=== PATIENT | male | born 1995 | race Caucasian/White ===

== ENCOUNTER 2019-03-20 18:56 | Emergency (ER) | payer BC, OTHER ==
[2019-03-20 19:02] VITALS: BP 134/74; PULSE 108; RESP 16; TEMP 98.7
--- NOTE | 2019-03-20 19:38 | ED ---
General Adult HPI - General Source: patient, RN notes reviewed Mode of arrival: ambulatory Limitations: no limitations <Alexi Delgado - Last Filed: 03/20/19 19:49> <Jacqueline Harris - Last Filed: 03/22/19 22:24> - General Chief complaint: Fever Stated complaint: positive flu test Time Seen by Provider: 03/20/19 19:06 - History of Present Illness Initial comments: 23-year-old male without any significant past medical history presents to the emergency department for fever. Patient has had a fever since yesterday. States that today his fever was 100. He went to urgent care and his anus with influenza B. Patient did have a positive influenza B test. He was started on Tylenol and Tamiflu. Apparently urgent care told him to come to the emergency department if he continued to have fevers. Patient states that he had a temperature of 100.0 earlier today. Patient has not taken any Motrin. Patient has symptoms of congestion and runny nose. No significant cough. Patient does not have any immunosuppressive features.Patient has no other complaints at this time including shortness of breath, chest pain, abdominal pain, nausea or vomiting, headache, or visual changes. (Alexi Delgado) - Related Data Previous Rx's Medication Instructions Recorded Ibuprofen [Motrin] 600 mg PO Q6HR PRN #20 tab 03/20/19 Allergies Allergy/AdvReac Type Severity Reaction Status Date / Time amoxicillin [From Augmentin] Allergy Rash/Hives Verified 03/20/19 19:01 clavulanic acid Allergy Rash/Hives Verified 03/20/19 19:01 [From Augmentin] shellfish derived [Shellfish] Allergy Swelling Verified 03/20/19 19:01 Review of Systems ROS Other: All systems not noted in ROS Statement are negative. <Alexi Delgado - Last Filed: 03/20/19 19:49> ROS Other: All systems not noted in ROS Statement are negative. <Jacqueline Harris - Last Filed: 03/22/19 22:24> ROS Statement: Those systems with pertinent positive or pertinent negative responses have been documented in the HPI. Past Medical History Past Medical History: Hypertension History of Any Multi-Drug Resistant Organisms: None Reported Past Surgical History: No Surgical Hx Reported Past Psychological History: Bipolar Smoking Status: Current every day smoker Past Alcohol Use History: Rare Past Drug Use History: None Reported <Alexi Delgado - Last Filed: 03/20/19 19:49> General Exam Limitations: no limitations General appearance: alert, in no apparent distress Head exam: Present: atraumatic, normocephalic, normal inspection Eye exam: Present: normal appearance, PERRL, EOMI. Absent: scleral icterus, conjunctival injection, periorbital swelling ENT exam: Present: normal exam, normal oropharynx, mucous membranes moist, TM's normal bilaterally, normal external ear exam Neck exam: Present: normal inspection, full ROM. Absent: tenderness, meningismus, lymphadenopathy Respiratory exam: Present: normal lung sounds bilaterally. Absent: respiratory distress, wheezes, rales, rhonchi, stridor Cardiovascular Exam: Present: regular rate, normal rhythm, normal heart sounds. Absent: systolic murmur, diastolic murmur, rubs, gallop, clicks GI/Abdominal exam: Present: soft, normal bowel sounds. Absent: distended, tenderness, guarding, rebound, rigid <Alexi Delgado - Last Filed: 03/20/19 19:49> Course Vital Signs 03/20/19 18:59 Temperature 98.7 F Pulse Rate 108 H Respiratory 16 Rate Blood Pressure 134/74 O2 Sat by Pulse 96 Oximetry Medical Decision Making <Alexi Delgado - Last Filed: 03/20/19 19:49> <Jacqueilne Harris - Last Filed: 03/22/19 22:24> - Medical Decision Making Patient is well appearing. Nontoxic. Alert. Physical exam is generally unremarkable. Patient does have congestion noted nasally. Patient is afebrile here in the emergency department. Discussed that with influenza patient will continue to have fevers on and off for the next several days. Discussed adding Motrin to his Tylenol regimen. This was prescribed for him. Discussed follow- up with primary care within 2 days or return if he has any worsening symptoms. As mentioned patient is already on Tamiflu. (Alexi Delgado) I was available for consultation in the emergency department. The history and physical exam were done by the midlevel provider. I was consulted for this olga ents care. I reviewed the case with the midlevel provider and based on their presentation of the patient, I agree with the assessment, medical decision making and plan of care as documented. Chart was dictated using [employer] dictation software. Attempts were made to correct any dictation errors however some typographical errors may persist. (Jacqueline Harris) Disposition Is patient prescribed a controlled substance at d/c from ED?: No Time of Disposition: 19:41 <Alexi Delgado - Last Filed: 03/20/19 19:49> <Jacqueline Harris - Last Filed: 03/22/19 22:24> Clinical Impression: Influenza Disposition: HOME SELF-CARE Condition: Good Instructions (If sedation given, give patient instructions): Fever in Adults (ED), Influenza (ED) Additional Instructions: Please take Motrin and Tylenol for fever. As discussed will likely have fevers for the next several days. Please follow-up with primary care in 1-2 days. Return to the emergency department if you have any worsening symptoms. Prescriptions: Ibuprofen [Motrin] 600 mg PO Q6HR PRN #20 tab PRN Reason: Pain Referrals: Ray Farris MD [Primary Care Provider] - 1-2 days
== END 2019-03-20 19:52 | disposition home or self-care (01) ==
LOC: EC 18:56
DX: J11.1 Influenza due to unidentified influenza virus with other respiratory manifestations (principal); F17.200 Nicotine dependence, unspecified, uncomplicated; Z88.0 Allergy status to penicillin; Z88.1 Allergy status to other antibiotic agents; Z91.013 Allergy to seafood
CPT/HCPCS: 99283

== ENCOUNTER 2020-07-12 14:28 | Emergency (ER) | payer BC, OTHER ==
[2020-07-12 14:45] VITALS: BP 138/84; PULSE 102; RESP 18; TEMP 97.8
[2020-07-12] MEDS ORDERED: IBUPROFEN 600 MG STARTER PACK 4 TAB BTL PO STA (14:59)
[2020-07-12] MEDS ORDERED: ACET/COD 300 MG/30 MG STARTER PACK 6 TAB BTL PO STA (14:59)
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
== END 2020-07-12 16:37 | disposition home or self-care (01) ==
LOC: EC 14:28
DX: S16.1XXA Strain of muscle, fascia and tendon at neck level, initial encounter (principal); S40.022A Contusion of left upper arm, initial encounter; S80.02XA Contusion of left knee, initial encounter; I10 Essential (primary) hypertension; Z79.1 Long term (current) use of non-steroidal anti-inflammatories (NSAID); Z79.899 Other long term (current) drug therapy; Z88.0 Allergy status to penicillin; Z88.1 Allergy status to other antibiotic agents; V44.5XXA Car driver injured in collision with heavy transport vehicle or bus in traffic accident, initial encounter; Y92.410 Unspecified street and highway as the place of occurrence of the external cause
CPT/HCPCS: 72050; 99284